=== PATIENT | female | born 1975 | race Hispanic/Latino ===

== ENCOUNTER 2024-02-08 12:14 | Emergency (ER) | payer OTHER ==
[~2024-02-08] VITALS: Ht 154.9 cm; Wt 76.2 kg
[2024-02-08 13:13] VITALS: PULSE 84; RESP 17; TEMP 97.3
[2024-02-08] MEDS ORDERED: CYCLOPENTOLATE HCL OP ONE (15:00)
[2024-02-08] MEDS ORDERED: OPTH OP ONE (15:00)
[2024-02-08] MEDS: TETRACAINE HCL 0.5% OPTH SOLN 4 ML BTL OP ONE (15:02)
[2024-02-08] MEDS: FLUORESCEIN SOD(OPTH) 1 MG STRP OP ONE (15:02)
[2024-02-08] MEDS ORDERED: HYDROCODON-ACE1 EA11 PO (15:03)
[2024-02-08] MEDS: CYCLOPENTOLATE HCL 1% OPTH SOLN 2ML BTL OP ONE (15:28)
[2024-02-08] MEDS: HYDROCODONE/APAP 5MG-325MG TAB PO ONE (15:29)
[2024-02-08] MEDS: TOBRAMYCIN 0.3% OPTH OINT 3.5 GM TUBE OP ONE (15:29)
[2024-02-08 15:37] VITALS: BP 130/76; PULSE 82; RESP 16; TEMP 97.4; O2SAT 99
== END 2024-02-08 15:34 | disposition home or self-care (01) ==
LOC: ER 12:24
DX: S05.01XA Injury of conjunctiva and corneal abrasion without foreign body, right eye, initial encounter (principal); W54.1XXA Struck by dog, initial encounter; Y92.89 Other specified places as the place of occurrence of the external cause; F41.9 Anxiety disorder, unspecified; F32.A Depression, unspecified; Z98.84 Bariatric surgery status
CPT/HCPCS: 99284